=== PATIENT | female | born 1955 | race Caucasian/White ===

== ENCOUNTER 2019-05-09 16:58 | Emergency (ER) | payer OTHER, MEDICARE ==
[2019-05-09] MEDS ORDERED: OXYCODONE HCL IR 5 MG TABLET PO ONE (17:35)
--- NOTE | 2019-05-09 17:36 | ER Document Report ---
ED Medical Screen (RME) - General Chief Complaint: Fall Injury Stated Complaint: FALL/LEFT SHOULDER PAIN Time Seen by Provider: 05/09/19 17:29 - HPI Notes: 05/09/19 17:35 Patient is a 64-year-old female who presents complaining of left shoulder pain and probable dislocation after she fell a few hours ago. Patient was at urgent care and they believe it to be dislocated on x-ray so they sent her here for evaluation. Patient states any movement makes the pain worse off of the shoulder. Patient states that she tripped over her footing and is not exactly sure how she landed, but injured the shoulder. She did not hit her head or lose consciousness. She is otherwise able to ambulate. No other concerns or complaints. No chest pain, shortness of breath, abdominal pain. I have treated and performed a rapid initial assessment of this patient. A comprehensive ED assessment and evaluation of the patient, analysis of test results and completion of medical decision making process will be conducted by additional ED providers. PHYSICAL EXAMINATION: GENERAL: Well-appearing, well-nourished and in no acute distress. A&Ox4. Answers questions appropriately. Left shoulder: Limited range of motion. There is tenderness and deformity noted to the left proximal humerus suggestive of dislocation. N/V intact distal. Physical Exam - Vital signs Vitals: Temp Pulse Resp BP Pulse Ox 97.6 F 52 L 18 177/90 H 100 05/09/19 17:21 05/09/19 17:21 05/09/19 17:21 05/09/19 17:21 05/09/19 17:21 Course - Vital Signs Vital signs: Temp Pulse Resp BP Pulse Ox 97.6 F 52 L 18 177/90 H 100 05/09/19 17:21 05/09/19 17:21 05/09/19 17:21 05/09/19 17:21 05/09/19 17:21
[2019-05-09] MEDS ORDERED: PROPOFOL INJ 200 MG/20 ML VIAL IV ONE (17:47)
[2019-05-09] MEDS ORDERED: FENTANYL CITRATE INJ/PF 100 MCG/2 ML AMPUL IV ONE (17:48)
--- NOTE | 2019-05-09 17:52 | ER Document Report ---
ED General - General Chief Complaint: Shoulder Injury Stated Complaint: FALL/LEFT SHOULDER PAIN Time Seen by Provider: 05/09/19 17:29 Primary Care Provider: LEVON ACOSTA JR, DO [ACTIVE PROVISIONAL STAFF] - Follow up in 3-5 days TRAVEL OUTSIDE OF THE [place] IN LAST 30 DAYS: No - HPI Notes: Patient is a 64-year-old female who presents complaining of left shoulder pain and probable dislocation after she fell a few hours ago. Patient was at urgent care and they believe it to be dislocated on x-ray so they sent her here for evaluation. Patient states any movement makes the pain worse off of the shoulder. Patient states that she tripped over her footing and is not exactly sure how she landed, but injured the shoulder. She did not hit her head or lose consciousness. She is otherwise able to ambulate. No other concerns or complaints. Denies any headache, fever, head injury, neck pain, changes in vision/speech/mentation/hearing, URI, sore throat, chest pain, palpitations, syncope, cough, shortness of breath, wheeze, dyspnea, abdominal pain, nausea/vomiting/diarrhea, urinary retention, dysuria, hematuria, loss of control of bowel or bladder, numbness/tingling, muscle paralysis, or rash. Past Medical History - Social History Smoking Status: Former Smoker Family History: Reviewed & Not Pertinent Patient has suicidal ideation: No Patient has homicidal ideation: No Review of Systems - Review of Systems -: Yes All other systems reviewed and negative Physical Exam - Vital signs Vitals: Temp Pulse Resp BP Pulse Ox 97.6 F 52 L 18 177/90 H 100 05/09/19 17:21 05/09/19 17:21 05/09/19 17:21 05/09/19 17:21 05/09/19 17:21 - Notes Notes: PHYSICAL EXAMINATION: GENERAL: Well-appearing, well-nourished and in no acute distress. NECK: Normal range of motion, supple without lymphadenopathy. Non-tender. Spurling negative. No rigidity/meningismus. LUNGS: Breath sounds clear to auscultation bilaterally and equal. No wheezes rales or rhonchi. HEART: Regular rate and rhythm without murmurs, rubs, gallops. Musculoskeletal: Left shoulder: Limited range of motion. There is tenderness and deformity noted to the left proximal humerus suggestive of dislocation. N/V intact distal. No other bony tenderness to the LUE. Extremities: No cyanosis, clubbing, or edema b/l. Peripheral pulses 2+. Capillary refill less than 3 seconds. NEUROLOGICAL: Normal speech, normal gait. Normal sensory, motor exams PSYCH: Normal mood, normal affect. SKIN: Warm, Dry, normal turgor, no rashes or lesions noted. Course - Re-evaluation Re-evalutation: 05/09/19 Patient is an afebrile, well-hydrated, 64-year-old female who presents with a left shoulder dislocation. Vitals are acceptable. PE is otherwise unremarkable for any focal neurological deficits, neurovascular compromise, open fracture, septic joint. Conscious sedation was performed by myself as well as Dr. Morrison with reduction of the shoulder dislocation. Patient tolerated procedure well without any complications. No further work-up warranted at this time. Sling was placed today. Low suspicion for any other systemic or emergent condition at this time. Patient is to call orthopedics tomorrow to set up an appointment for further evaluation and management. Return to the ED with any other worsening/concerning symptoms. Patient is in agreement. - Vital Signs Vital signs: Temp Pulse Resp BP Pulse Ox 97.6 F 53 L 14 149/87 H 100 05/09/19 17:28 05/09/19 19:56 05/09/19 20:10 05/09/19 20:10 05/09/19 20:06 Procedures - Conscious Sedation Conscious sedation Consent obtained: Yes Prior complications: Procedural sedation Pt with a mild systemic disease.: P2. - ASA Classification. Airway Evaluation: Normal anatomy Mallampati Classification: Class 1 Used during procedure: Suction available, IV access obtained, Pulse ox on pt., records analyst on pt. Medications administered: Fentanyl, Ketamine - 125mg, Other - propofol 200mg I personally performed/intraservice time: Sedation - Dr. Morrison, Procedure - Dr. Morrison and myself, 31-45 min Complications: No - cautiously increased meds due to age (so just took a little longer) Discharge - Discharge Clinical Impression: Dislocation of left shoulder joint Qualifiers: Encounter type: initial encounter Qualified Code(s): S43.005A - Unspecified dislocation of left shoulder joint, initial encounter Condition: Stable Disposition: HOME, SELF-CARE Instructions: Shoulder Dislocation ([facility]) Additional Instructions: Rest, Ice, Compression, Elevation Use sling as directed Tylenol/ibuprofen as needed F/u with your PCP in 3-5 days for a recheck Call orthopedics tomorrow to schedule an appointment for further evaluation and management Return to the ED with any worsening symptoms and/or development of fever, headache, chest pain, palpitations, syncope, shortness of breath, trouble breathing, abdominal pain, n/v/d, muscle weakness/paralysis, numbness/tingling, swelling, redness, or other worsening symptoms that are concerning to you. Prescriptions: Oxycodone HCl/Acetaminophen [Percocet 5-325 mg Tablet] 1 tab PO TID #12 tab Forms: Elevated Blood Pressure Referrals: LEVON ACOSTA JR, DO [ACTIVE PROVISIONAL STAFF] - Follow up in 3-5 days
--- NOTE | 2019-05-09 18:00 | RADIOLOGY REPORT (SQ) ---
EXAM DESCRIPTION: SHOULDER LEFT 2 OR MORE VIEWS COMPLETED DATE/TIME: 05/09/2019 5:52 pm REASON FOR STUDY: probable dislocation s/p fall COMPARISON: None. NUMBER OF VIEWS: Three views. TECHNIQUE: Internal rotation, external rotation, and Y view images acquired of the left shoulder. LIMITATIONS: None. FINDINGS: MINERALIZATION: Normal. BONES: Anterior dislocation of the glenohumeral joint. No fracture is seen. JOINTS: No dislocation. VISUALIZED LUNGS AND RIBS: No pneumothorax. No rib fracture. SOFT TISSUES: No radiopaque foreign body. OTHER: No other significant finding. IMPRESSION: Anterior dislocation. TECHNICAL DOCUMENTATION: JOB ID: [id number] [employer]- All Rights Reserved Reading location - IP/workstation name: [email or web address]
[2019-05-09] MEDS ORDERED: ONDANSETRON HCL INJ/PF 4 MG/2 ML SDV IV ONE (19:10)
[2019-05-09] MEDS ORDERED: KETAMINE HCL INJ 500 MG/10 ML VIAL IV ONE ×2 (20:03→20:37)
--- NOTE | 2019-05-09 21:16 | RADIOLOGY REPORT (SQ) ---
SINGLE FRONTAL VIEW OF LEFT SHOULDER EXAM DATE: 05/09/2019 8:25 PM [employer] HISTORY: Shoulder dislocation. COMPARISON: Radiographs from earlier the same day. FINDINGS: There has been interval reduction of the anterior glenohumeral dislocation. No definite fracture fragment is seen. IMPRESSION: Successful reduction of anterior shoulder dislocation.
[2019-05-09 21:55] VITALS: BP 148/63
== END 2019-05-09 21:55 | disposition home or self-care (01) ==
LOC: ER 16:58
DX: S43.015A Anterior dislocation of left humerus, initial encounter (principal); M25.512 Pain in left shoulder; W01.0XXA Fall on same level from slipping, tripping and stumbling without subsequent striking against object, initial encounter; Z87.891 Personal history of nicotine dependence
CPT/HCPCS: 99283; 99152; 96374; 73020; 73030; 23650; L3650; J3010; J3490; J2405; J2704